=== PATIENT | female | born 2005 | race Caucasian/White ===

== ENCOUNTER → 2023-04-03 | Outpatient (CLI) | payer OTHER, SELFPAY ==
[2023-04-03 12:45] LABS: Pathologist Comment May follow
[2023-04-03 13:10] LABS: Synovial Fld Mononuclear WBC % 75.9 %; Synovial Fld Polynuclear WBC # 1.986 10^3/uL; Synovial Fld Polynuclear WBC % 24.1 %
[2023-04-03 13:14] LABS: RBC /Synovial Fluid 0.003 10^6/uL (0)
[2023-04-03 13:15] LABS: AUTO B FLUID DILUENT BKGD CT WBC <0.1 RBC <0.01 (W<.1,R<.01); Source- Body Fluid SYNOVIAL
[2023-04-03 13:16] LABS: Color / Synovial Fluid Yellow (Pale Yellow); Source / Synovial Fluid RIGHT KNEE; Viscosity / Synovial Fluid Sl. Viscous (HIGH)
[2023-04-03 13:17] LABS: Appearance /Synovial Fluid Cloudy (CLEAR)
[2023-04-03 14:03] LABS: CRYSTALS, BODY FLUID NO CRYSTALS SEEN
[2023-04-03 14:24] LABS: Lymph 50 %; Monocyte /Synovial Fluid 2 %; Neutrophil 45 % (0-25); Other Cell /Synovial Fluid 3 %
[2023-04-05 09:24] LABS: Pathologist Review Reviewed
== END | disposition home or self-care (01) ==
PROVIDERS: Referring Provider Internal Medicine Rheumatology; Visit Provider Internal Medicine Rheumatology
DX: M06.4 Inflammatory polyarthropathy (principal); R76.8 Other specified abnormal immunological findings in serum
CPT/HCPCS: 87070; 87075; 87205; 89050; 89051; 89060